=== PATIENT | male | born 1960 | race Caucasian/White ===

== ENCOUNTER 2016-10-04 13:52 | Emergency (ER) | payer OTHER ==
[~2016-10-04] VITALS: Ht 185.4 cm; Wt 73.3 kg
[2016-10-04 14:01] VITALS: TEMP 36.9; Ht 185.4 cm; Wt 73.3 kg
[2016-10-04] MEDS ORDERED: AMLO-110 PO (14:10)
[2016-10-04] MEDS ORDERED: LOSA50TA6 PO (14:10)
[2016-10-04] MEDS ORDERED: GELATIN SPONGE 12-7MM EXT STA (14:15)
--- NOTE | 2016-10-04 14:48 | EMERGENCY ROOM VISIT NOTE ---
ED Visit Note First contact with patient: 14:09 Chief Complaint: "Cut to left thumb". History of Present Illness: This patient is a 55-year-old male who presents to the Emergency Department via private vehicle coming by female for evaluation of their left thumb laceration. Patient sustained the laceration while slicing onions. They report a moderate amount of bleeding initially. They deny any numbness or tingling into the distal extremity. They report no decreased range of motion of the affected digit. Patient rates his current discomfort as a 5/10. Patient's Tetanus status is currently up-to-date. Medications: As noted below Allergies: None reported PMH: No pertinent SHx: Patient lives locally with family ROS: All pertinent positive and negative review of systems are appropriately documented in the History of Present Illness. Physical Exam: VITAL SIGNS - Vital signs and nursing notes were reviewed. GENERAL -55-year-old male appearing his stated age who is in no acute distress. Communicates well with provider and answers questions appropriately. SKIN - There is a 1 cm long laceration noted to the distal aspect of the left thumb tip which is avulsed without bone involvement. The edges gape apart with traction. No foreign bodies appreciated. Upon further examination there are no deep structures including vessel, tendon, or bony structures appreciated. There is no active bleeding noted. MUSCULOSKELETAL - Laceration as described above. +5/5 strength appreciated of the affected digit. Full range of motion of the affected digit. NEUROLOGIC -he is neurovascularly intact in this region.. VASCULAR - Capillary refill was brisk. ED Course: Patient was seen and evaluated by myself. Risks and benefits of performing primary wound closure versus no repair were discussed with the patient who verbalizes understanding. Verbal consent was obtained prior to performing the procedure. Patient declines anesthesia. The wound was cleansed and prepped in the typical sterile fashion utilizing normal saline. The wound was copiously irrigated with normal saline and Betadine. Gelfoam was placed over the wound and secured in place with a moderate pressure dressing. Patient tolerated the procedure well. No complications were met. He was reevaluated after 15 minutes and the appropriate hemostasis was achieved. Patient educated on worrisome symptoms for return visit to the Emergency Department. Patient discharged to home in good condition. In the evaluation treatment this patient following differential diagnoses were entertained: Skin avulsion, laceration, among others. Current/Historical Medications Scheduled Amlodipine (Norvasc), 5 MG PO DAILY Losartan Potassium (Cozaar), 50 MG PO DAILY Allergies Coded Allergies: No Known Allergies (Unverified , 10/04/16) Vital Signs Date Time Temp Pulse Resp B/P (MAP) Pulse Ox O2 Delivery O2 Flow Rate FiO2 10/04/16 15:48 78 20 148/78 99 10/04/16 14:01 36.9 88 16 152/93 97 Departure Information Impression Primary Impression: Laceration Dispostion Home / Self-Care Condition GOOD Referrals No Doctor, Assigned (PCP) Patient Instructions My [facility] Additional Instructions You have been treated in the Emergency Department today for your finger tip Avulsion. Leave the GELFOAM and dressing in place for the next 48 hours. Keep the dressing clean and dry until time for removal. To remove the GELFOAM dressing, remove the overlying tape and then soak the wound in warm water until the piece of GELFOAM can be easily removed. Proper wound care is essential for adequate wound healing and infection prevention. You can shower and clean the wound with soap and water. Do not scour over the wound, pat dry with a towel. You can use an antibiotic ointment with a dressing/bandage over the wound for the next 3-4 days. After this time you may leave the wound dry and open to the air. Look for signs of infection of the wound including: increased pain, swelling, foul discharge, streaking, or increased temperature. If any of these are noticed you should return to the Emergency Department for further assessment and treatment. As with any laceration you may have received nerve damage to the surrounding tissues. This damage could be permanent. For pain control, you can use the following [id number] medicines (if >12 yo): - Regular strength (325mg/tab) Tylenol (acetaminophen) 2 tabs every 4-6 hours as needed. Do not exceed 12 tablets in a 24 hour period. Avoid taking more than 3 grams (3000 mg) of Tylenol per day. This includes any other sources of acetaminophen you may take on a regular basis. - Regular strength (200 mg/tab) Advil (ibuprofen) 1-2 tabs every 4-6 hours as needed. Do not exceed a dose of 3200 mg per day. Return to the emergency department if your symptoms worsen despite treatment course outlined above.
[2016-10-04 15:48] VITALS: BP 148/78; PULSE 78; O2SAT 99
== END 2016-10-04 15:50 | disposition home or self-care (01) ==
LOC: C.EDB 13:54 → C.EDD 15:50
DX: S61.012A Laceration without foreign body of left thumb without damage to nail, initial encounter (principal); W26.0XXA Contact with knife, initial encounter